=== PATIENT | male | born 1990 | race Caucasian/White ===

== ENCOUNTER 2016-10-09 15:28 | Emergency (ER) | payer SELFPAY ==
[2016-10-09] MEDS ORDERED: DILAUDID 1 MG/ML AMP ONE (19:28)
[2016-10-09] MEDS ORDERED: CLINDAMYCIN 600 MG/4 ML VIAL ONE (19:28)
[2016-10-09] MEDS ORDERED: ONDANSETRON ODT 4 MG TAB ONE (19:28)
== END 2016-10-09 19:49 | disposition home or self-care (01) ==
LOC: ER 15:28
CPT/HCPCS: 96372